=== PATIENT | female | born 1950 | race Caucasian/White ===

== ENCOUNTER 2016-12-17 10:57 | Inpatient (IN) | payer MEDICARE ==
[2016-12-17] VITALS (7 sets, daily range): BP systolic 139–194; BP diastolic 77–99; PULSE 80–116; RESP 16–18; O2SAT 96–100
[~2016-12-17] VITALS: Ht 160 cm; Wt 67.6 kg
[~2016-12-17 10:57] MED LIST: ALPR0.5T8 PO; ASPI-628 PO; ATEN50TA PO; FLUO10CA20 PO; HYDR25TA4 PO; LEVO112T4 PO; LISI40TA PO; LOVA40TA PO
[2016-12-17] MEDS ORDERED: 0.9% Sodium Chloride 1,000 ML IV ONE (11:06)
--- NOTE | 2016-12-17 11:06 | ED.REPORT ---
HPI-General Illness Date of Service Dec 17, 2016 ED Provider: Evert Hawkins MD Patient is a 66 year old female with a hx of HTN, hyperlipidemia, and breast cancer who presents to the ED via EMS s/p a syncopal episode. The patient was sitting on the living room floor with her daughter. When the daughter left and returned to the room, pt was on the floor and unconscious. It is estimated that she lost consciousness for 30 seconds to 1 minute. Daughter reports that the pt was complaining of lightheadedness before the incident. Per daughter, patient has been falling every day over the past 3 weeks. Patient states that she was feeling somewhat lightheaded beforehand but denies having any other symptoms at that time. She denies noting any notable alleviating or exacerbating factors that would have contributed to this. The falls have been increasing in frequency. She denies chest pain, SOB, dysuria, abdominal pain, nausea, vomiting, diarrhea, constipation, hematochezia, hematuria, numbness, focal weakness, fevers, chills, or any other symptoms. She was given a 500cc bolus en route. Patient did not take her HTN medications today. Nursing Notes Stated Complaint: SYNCOPE Chief Complaint: General Complaint Nursing Notes Reviewed: Yes Allergies: Coded Allergies: No Known Allergies (Unverified Allergy, Unknown, 12/17/16) Scheduled Aspirin Chew (Aspirin Chew) 81 Mg Chew 81 MG PO DAILY Gabapentin (Gabapentin) 100 Mg Capsule 200 MG PO HS Hydrochlorothiazide (Hydrochlorothiazide) 25 Mg Tablet 12.5 MG PO DAILY Levothyroxine (Levothyroxine) 112 Mcg Tablet 112 MCG PO DAILY Lisinopril (Lisinopril) 40 Mg Tablet 40 MG PO DAILY Lovastatin (Lovastatin) 40 Mg Tablet 40 MG PO HS General Time Seen by MD: 11:00 Chief Complaint Other (Syncope ) Hx Obtained From: Patient, Daughter Arrived By: Ambulance Sudden in Onset?: Yes Onset Occurred: Just prior to arrival Context of Onset: EtOH use Symptom Duration: More than a week... (3 weeks) Caused by: Accidental Context: Occurred at: Home injury Severity: Current: No pain currently Severity: Maximum: No pain Associated with: Reports: Loss of consciousness, Off balance (more falls ), Denies: Abdominal pain, Bleeding, Bruising, Chest pain, Diaphoresis, Difficulty breathing, Headache, Itching, Nasal discharge, Neck pain, Rash, Shortness of breath, Vision change, Vomiting, Weakness Additional Notes: lightheadedness Pertinent Negative: Pt denies other symptoms Exacerbated by: Drinking (alcohol) Pertinent Negative: Relieved by nothing Context Related History: Reports Cancer Recent Healthcare: No recent hospitalization Past Medical History Past Medical History Notes: Previously in a coma on life support for [address] [facility] Past Medical History High cholesterol Breast cancer Hypertension Depression necrotizing fasciitis with skin graft Thyroid disease Anxiety Past Surgical History Mastectomy "Ovary surgery" Reports: Tubal ligation Family History Daughter has hx of opiod addiction Smoking History Former Smoker Social History Alcohol Use: 1-3 per day Drug Use: Denies drug use Other Social History: Good social support Ambulatory Status Independent Review of Systems +frequent falls Full Review of Systems Constitutional: Denies: Chills, Fever Eyes: Denies: Blurred bilateral Ears / Nose / Throat: Denies: Sore throat Respiratory: Denies: Shortness of breath Cardiovascular: Denies: Chest pain GI: Denies: Abdominal pain, Constipation, Diarrhea, Hematochezia, Nausea, Vomiting Female: Denies: Dysuria, Hematuria Musculoskeletal: Denies: Neck pain Hematologic: Denies Bruising Endocrine: Denies: Polyuria Skin: Denies Rash Allergy / Immune: Denies: Itching Neurologic: Reports: Lightheaded, Syncope, Denies: Focal weakness, Numbness Psychiatric: Denies: Suicidal ideation Complete sys rev & neg: except as marked. Physical Exam Nursing note and vitals reviewed. Constitutional: Middle aged female that appears older than stated age. Tremulous. Head: Normocephalic and atraumatic. Mouth/Throat: Oropharynx is clear and moist. No oropharyngeal exudate. Eyes: EOM are normal. Pupils are equal, round, and reactive to light. Neck: Supple, no tracheal deviation. Cardiovascular: Tachycardia, regular rhythm. Equal and intact distal pulses throughout. Pulmonary/Chest: Effort normal and breath sounds normal. No respiratory distress. Abdominal: Soft. No distension. There is no tenderness, rebound, or guarding. Bowel sounds present. Musculoskeletal: Range of motion grossly intact, moving all extremities. No edema or tenderness appreciated. Neurological: AOx3. Grossly nonfocal exam. Strength and sensation intact and equal to bilateral upper and lower extremities. Tremulous. CIWA score 5. Skin: Warm and dry, no rashes or pallor appreciated. Psychiatric: Appropriate mood and affect. Behavior appears normal. Good insight. Vital Signs Vital Signs Date Time Temp Pulse Resp B/P Pulse Ox O2 Delivery O2 Flow Rate FiO2 12/17/16 14:19 105 17 160/77 98 Room Air 12/17/16 11:05 36.5 93 17 139/79 100 Room Air Initial VS: Reviewed Interpretation & Diagnostics Lab Results Interpretation Result Diagram: 12/17/16 1045 12/17/16 1045 Test 12/17/16 10:45 12/17/16 12:44 12/17/16 12:50 White Blood Count 6.4th/mm3 (3.8-10.1) Red Blood Count 3.76mil/mm3 (3.90-5.20) Hemoglobin 12.7g/dL (12.0-15.6) Hematocrit 35.7% (35.0-46.0) Mean Corpuscular Volume 94.9fL (81-100) Mean Corpuscular Hemoglobin 33.8pg (27.0-35.0) Mean Corpuscular Hemoglobin Concent 35.6% (32.0-37.0) Red Cell Distribution Width 13.1% (12.3-15.4) Platelet Count 275bil/L (150-400) Neutrophils (%) (Auto) 70.4% (40-74) Lymphocytes (%) (Auto) 14.0% (14-46) Monocytes (%) (Auto) 13.8% (4-12) Eosinophils (%) (Auto) 0.6% (0-5) Basophils (%) (Auto) 0.9% (0-3) Sodium Level 131mEq/L (134-144) Potassium Level 3.8mEq/L (3.5-5.2) Chloride Level 88mEq/L (97-108) Carbon Dioxide Level 16mmol/L (18-29) Blood Urea Nitrogen 8mg/dL (8-27) Creatinine 0.82mg/dL (0.57-1.00) Estimat Glomerular Filtration Rate 100mL/min (>59) Glucose Level 130mg/dL (60-99) Calcium Level 9.1mg/dL (8.5-10.1) Magnesium Level 1.3mg/dL (1.6-2.6) Total Bilirubin 0.7mg/dL (0.0-1.2) Aspartate Amino Transf (AST/SGOT) 130U/L (0-50) Alanine Aminotransferase (ALT/SGPT) 67U/L (0-32) Alkaline Phosphatase 71U/L (25-165) Total Protein 7.5g/dL (6.4-8.4) Albumin 4.2g/dL (3.4-5.0) Alcohols 144mg/dL (0-10) Hold Urine Received (Received) Troponin T < 0.010ug/L (0.0-0.011) Lipase 54U/L (13-60) ECG Interpretation ECG Interpretation: unable to interpret Time: 11:18 Interpreted by: ED physician X-Ray Chest Interpretation Chest Xray Interpretation: IMPRESSION: 1. No acute cardiac pulmonary findings. 2. Questionable pleural thickening at the left lung base. Minimally displaced rib fracture could also be considered in the appropriate differential. PA and lateral view or rib series may be helpful depending upon clinical history and physical exam to further characterize this finding. Dictated by: Laureen Pace M.D. on 12/17/2016 at 11:42 Approved by: Laureen Pace M.D. on 12/17/2016 at 11:44 View: Portable, 1 view Interpretation / Wet Read by: Interpret - Radiologist CT Head Interpretation IMPRESSION: 1. No acute intracranial process. 2. Moderate atrophy and chronic microvascular ischemic changes. Dictated by: Cinthya Jordan M.D. on 12/17/2016 at 12:37 Approved by: Cinthya Jordan M.D. on 12/17/2016 at 12:38 Study: Head CT no contrast Interpretation / Wet Read by: Interpret - Radiologist Re-Eval/Medical Decision Med Decision/Clinical Course In summary, 66-year-old female presenting to the ED for evaluation of increasing falls over the past several weeks, now fallen again this morning and being briefly unresponsive. Differential is broad and includes metabolic abnormality, intracranial mass/bleed, acute alcohol intoxication/ingestion, dysrhythmia, ACS, etc. Patient has no symptoms of note upon my evaluation, including no chest pain or palpitations. Shortly after our initial discussion, the patient admits to using more alcohol than she has previously admitted to and acknowledges that she is an alcoholic. She has not sought treatment for this in the past. Initially stated that she only had "a couple" of drinks last night and no alcohol today, however her initial blood alcohol is 144; if she has not had any alcohol today, then she likely had many more than 2 drinks last night. Chest x-ray with possible pleural thickening at the left lung base; she has no tenderness there on examination. CT scan of the patient's head negative for any acute intracranial abnormality. Laboratory studies here notable for mildly elevated LFTs, stable from previous. Bilirubin 0.7. Magnesium level I.3 (repleted here in the ED). Troponin negative. H&H grossly within normal limits. Given her heavy drinking, I am concerned that she will continue to have falls if she does not cease from drinking. However, here in the emergency department, she is becoming tremulous with a CIWA of 5 despite elevated blood alcohol and I am concerned for alcohol withdrawal. Plan admission for further management and evaluation of her recurrent falls and alcohol abuse, treatment for alcohol withdrawal. Patient agreeable to the plan as stated, no further questions. Time of Eval: 13:41 Re-Evaluation/Progress Note: Counseled pt on alcohol use and plan for admission. Patient understands and agrees with plan. All questions addressed at this time. Consultation : Referral / Consult Name: Everardo Gonzalez MD Consulted With: Hospitalist Call Returned at: 14:40 Customer Support Specialist: Will see patient, Agrees with eval, Agrees with plan, Accepts admit Note: Discussed pt's case. Accepts admit. Counseled Regarding: Diagnosis, Lab results, Need for admission Discharge & Departure Primary Impression: Alcohol abuse Additional Impressions: Frequent falls Episode of syncope Syncope type: unspecified Qualified Code: R55 - Syncope and collapse Alcohol withdrawal Complication of substance-induced condition: uncomplicated Qualified Code: F10.230 - Alcohol dependence with withdrawal, uncomplicated Disposition: ADMITTED TO HOSPITAL Discharge Condition All VS Reviewed: Yes Condition: Stable Referrals: Mann Mallory MD (PCP) Nat Attestation Portions of this note were transcribed by Janusz Cevallos. I, Dr. Hawkins personally performed the history, physical exam and medical decision-making; I reviewed and confirmed the accuracy of the information in the transcribed note. Signed: Nat Tafoya, 12/17/16 copies to: Mann Mallory MD, William B MD Dec 17, 2016 11:06 JANUSZ CEVALLOS Dec 17, 2016 13:18
[2016-12-17 11:14] LABS: BASOPHILS % (AUTO) 0.9 % (0-3); EOSINOPHILS % (AUTO) 0.6 % (0-5); MONOCYTES % (AUTO) 13.8 % (4-12); Mean Corpuscular Hemoglobin 33.8 pg (27.0-35.0); Mean Corpuscular Volume 94.9 fL (81-100); NEUTROPHILS % (AUTO) 70.4 % (40-74); Platelet Count 275 bil/L (150-400)
[2016-12-17 11:28] LABS: TROPONIN T 0.01 ug/L (0.0-0.011)
[2016-12-17 11:39] LABS: Magnesium 1.3 mg/dL (1.6-2.6)
--- NOTE | 2016-12-17 11:46 | DRSVH ---
PROCEDURE: X-RAY CHEST ONE VIEW, PORTABLE ([id number]) INDICATIONS: syncope TECHNIQUE: One view of the chest was acquired. COMPARISON: [facility], , CHEST 2 VIEW, 07/30/2016, 11:20. [facility], , CHEST 1VW (PORTABLE), 05/28/2014, 15:03. FINDINGS: Surgical changes and devices: Patient is status post left axillary sadie dissection. Lungs and pleura: No pleural effusions or pneumothorax. Lungs are clear. Mediastinum: Mediastinal contours appear normal. Heart size is normal. Bones and chest wall: There is questionable focal pleural thickening at the left lung base which is n ew when compared with the prior study dated 07/30/16. No suspicious bony lesions. Overlying soft tiss ues appear unremarkable. IMPRESSION: 1. No acute cardiac pulmonary findings. 2. Questionable pleural thickening at the left lung base. Minimally displaced rib fracture could also be considered in the appropriate differential. PA and lateral view or rib series may be helpful depe nding upon clinical history and physical exam to further characterize this finding. Dictated by: Laureen Pace M.D. on 12/17/2016 at 11:42 Approved by: Laureen Pace M.D. on 12/17/2016 at 11:44
--- NOTE | 2016-12-17 12:40 | DRSVH ---
PROCEDURE: CT BRAIN WITHOUT CONTRAST ([id number]) INDICATIONS: syncope, hx breast cancer TECHNIQUE: Noncontrast 4.5 mm thick angled axial sections acquired from the foramen magnum to the vertex, with c oronal reformats. COMPARISON: None. FINDINGS: Image quality: Excellent. CSF spaces: Basal cisterns are patent. No extra-axial fluid collections. The ventricles are symmet leopoldo in size and shape. Brain: No intracranial bleeds or masses. There is cerebral volume loss for age, with resultant vent ricular and sulcal prominence. There are periventricular and deep white matter chronic small vessel ischemic changes. There is intracranial internal carotid artery atherosclerosis. Old left subinsula r ischemia is noted. Skull and face: Calvarium and visualized facial bones appear intact, without suspicious lesions. Sinuses: Visualized sinuses demonstrate partially visualized fluid in the right maxillary sinus.. IMPRESSION: 1. No acute intracranial process. 2. Moderate atrophy and chronic microvascular ischemic changes. Dictated by: Cinthya Jordan M.D. on 12/17/2016 at 12:37 Approved by: Cinthya Jordan M.D. on 12/17/2016 at 12:38
[2016-12-17] MEDS ORDERED: Magnesium Sulf 2 Gm/50mL Water 2 GM in IV Premix 1 EACH IV ONE (13:40)
[2016-12-17] MEDS ORDERED: GABA-500 PO (14:11)
[2016-12-17] MEDS ORDERED: Ondansetron 2 mg/mL 2 mL Inj IVPUSH PRN (14:45)
[2016-12-17] MEDS ORDERED: Thiamine Inj 100 MG, Folic Acid Inj 1 MG, Magnesium Sulfate 50% Inj 2 GM, Multivitamins... IV ONE ×5 (14:45)
--- NOTE | 2016-12-17 15:19 | PCM.HPMED ---
Subjective Date of Service Dec 17, 2016 Primary Provider: Admitting Physician: Everardo Gonzalez MD Primary Care Physician: Mann Mallory MD Attending Physician: Everardo Gonzalez MD Chief Complaint: Patient 66-year-old female from home presents to the ED via EMS status post syncopal episode. History of Present Illness: Patient carries a medical history significant for hypertension, dyslipidemia, and hypothyroidism. Patient was found down by daughter for about 30 minutes. Upon awakening, patient had no memory of event. Prior to the event, patient remember felt weak to the knee, extremely lightheadedness transitioning from a seated position to standing out from her car. She denies any palpitation, chest pain, or shortness of breath prior to the event and patient denies any muscle aches pain , no swollen tongue, no bladder or bowel incontinence post fall. Patient had one similar episode yesterday as well. No reported trauma from the syncopal episodes. Pt had frequent falls for the past 3-4 months. Patient denies any decrease in appetite or by mouth intake. Patient admits to ingesting at least 3 -4 shots of vodka qd the past 2 years. Patient endorses using alcohol to treat her anxiety/PTSD. Pt started drinking EtOH about 10 years ago after her abandoned her. When Medics arrived, positive for orthostatics, thus gave 500 mL NS enroute. The ED, vitals were unremarkable. Labs however showed patient intoxicated with an alcoholic level of 144, sodium 131, potassium 3.8, chloride 88, bicarbonate 16, BUN 8, creatinine 0.82, with a glucose 130. Additionally patient had magnesium 1.3 with AST 1:30, ALT 67, total bili and alkaline phosphatase within normal limits. Patient was thus admitted for syncope and alcohol intoxication Review of Systems: A comprehensive review of systems was conducted with the patient and found to be negative except as above in the History of Present Illness. Allergies Coded Allergies: No Known Allergies (Unverified Allergy, Unknown, 12/17/16) Home Medications Aspirin 81 mg daily Augmentin 200 mg daily Hydrochlorothiazide 12 mg daily Levothyroxine 1126 MCG daily Lisinopril 40 mg daily Lovastatin 40 mg nightly PMH High cholesterol Breast cancer Hypertension Depression necrotizing fasciitis with skin graft in May 2014 Thyroid disease Anxiety Surgical History Skin grafting to left forearm Family History Mother of aspiration pneumonia Father of [place] Social History Hx Alcohol Use: Yes (daily) Alcoholic Drinks Per Day: vodka,seltzer water 3-4 daily Smoking Status: Former Smoker Living Arrangement: with Family (lives on the same property as daughter) Exam Vital Signs Vital Sign - Last Date Time Temp Pulse Resp B/P Pulse Ox O2 Delivery O2 Flow Rate FiO2 12/17/16 14:19 105 17 160/77 98 Room Air 12/17/16 11:05 36.5 Exam General: No acute distress, appropriately interactive HEENT: Normocephalic, atraumatic. PERRLA, EOMI, Anicteric sclerae, moist conjunctivae. Neck: No JVD, No bruits. No lymphadenopathy or thyromegaly. Cardiovascular: Regular rate and rhythm with no murmurs, rubs, or gallops appreciated Pulmonary: b/l air sound with no crackles, wheezes, or rhonchi. no use of accessory muscles. Abdomen: +Bowel sound, Soft, nontender, nondistended. Extremities: No clubbing or cyanosis, no lymphedema, no b/l lower leg edema Skin: Normal temperature, turgor, and texture; no rash. No visualized skin ulcer. Neurological: CN II-VII grossly intact, moving equally on all 4 extremities, visible and tremors, negative heel heel to castanon test, positive finger to nose test Psychiatric: Normal mood and affect. AOx3 Lab and Diagnostics Result Diagram: 12/17/16 1045 12/17/16 1045 X-Rays, CTs and MRIs PROCEDURE: CT BRAIN WITHOUT CONTRAST ([id number]) IMPRESSION: 1. No acute intracranial process. 2. Moderate atrophy and chronic microvascular ischemic changes. Dictated by: Cinthya Jodran M.D. on 12/17/2016 at 12:37 Assessment & Plan Patient has a medical history significant for hypertension, dyslipidemia, hypothyroidism, alcoholic use disorder, and depression anxiety/PTSD presented with syncopal episode, admitted for further workup and also EtOH intoxication. Syncope -CT head unremarkable for any acute findings -Possible dehydration, cardiogenic, or autonomic dysfunction -Echocardiogram, telemetry monitoring ordered -ordered TSH, vitamin B12, folate ordered EtOH intoxication -alcohol 144 -supplements vitamins. -[facility] protocol in placed Transaminitis -ETOH related, possible viral -hepatitis panel and HIV testing ordered, ammonia for baseline Hyponatremia -urine sodium and Osm ordered -possibly ETOH related Frequent fall -2nd to syncope and unsteady gait -PT ordered Hypertension -cont home lisinopril and HCTz Dyslipidemia -cont home atorvastatin Hypothyroidism -Cont home levothyroxine -TSH/T4 ordered CODE STATUS full code DVT prophylaxis heparin Patient Status: Patient is admitted under observation status with expected length of stay LESS than 2 midnights due to severity of presenting symptoms, risk of adverse event, and complexity of treatment plan. GI Prophylaxis: Not indicated VTE Prophylaxis: Sub-Q Heparin (Unfractionated) Resuscitation Status: CPR: Attempt Resuscitation Galindo Vanessa DO Dec 17, 2016 15:18
[2016-12-17] MEDS ORDERED: ASPI81TA3 PO (16:00)
[2016-12-17] MEDS: Lisinopril 40 Tablet PO SCH (16:35)
--- NOTE | 2016-12-17 16:45 | DRSVH ---
[facility] [address] [place] [address] Echocardiogram Report Name: ANDREE HORTON Date: 12/17/2016 Height: 63 in Hospital Exam Location: [facility] Weight: 14 0 lb Gender: Female BSA: 1.7 m2 : 1950 Age: 66 yrs BP: 160/77 mmHg Reason For Study: SYNCOPE Ordering Physician: HOSPITALIST [facility] Performed By: Karen Lindsey Referring Physician: Sixto Fox Interpretation Summary The left ventricular cavity is small. There is mild asymmetric left ventricular hypertrophy. The left ventricular ejection fraction is normal. The ejection fraction is estimated to be 55-60%. Compared to the prior exam, left ventricular function is significantly improved. There are no obvious focal wall motion abnormalities noted but poor endocardial definition reduces the sensitivity for the detection of such. The right ventricle is normal size. The right ventricle appears to be hypertrophied. The right ventricular systolic function is normal which has improved since prior study. Pulmonary artery pressures cannot be estimated because of the lack of a measurable TR jet velocity. The left atrium is small. Right atrium is small. The aortic arch is mildly enlarged. There is an anterior echo-free space consistent with a fat pad. There appears to be no significant pericardial effusion. Procedure: A two-dimensional transthoracic echocardiogram with color flow and Doppler was performed. The study quality was technically difficult. Comparison is made with the echocardiogram of 05/28/14. The patient was in sinus tachycardia with heart rates between 90 and 109 bpm during the exam. Left Ventricle: The left ventricular cavity is small. There is mild asymmetric left ventricular hypertrophy. The left ventricular ejection fraction is normal. The ejection fraction is estimated to be 55-60%. Compared to the prior exam, left ventricular function is significantly improved. There are no obvious focal wall motion abnormalities noted but poor endocardial definition reduces the sensitivity for the detection of such. Diastolic function could not be accurately assessed due to tachycardia. Right Ventricle: The right ventricle is normal size. The right ventricle appears to be hypertrophied. The right ventricular systolic function is normal. Atria: The left atrium is small. Right atrium is small. There is no Doppler evidence for an interatrial shunt. Mitral Valve: The mitral valve leaflets appear thickened, but open well. There is no mitral regurgitation noted. Aortic Valve: The aortic valve is not well visualized. The aortic valve opens well. No aortic regurgitation is present. Tricuspid Valve: The tricuspid valve is normal. There is a trace or physiologic amount of tricuspid regurgitation. Pulmonary artery pressures cannot be estimated because of the lack of a measurable TR jet velocity. Pulmonic Valve: The pulmonic valve is not well visualized. There is a trace or physiologic amount of pulmonic regurgitation. Great Vessels: The aortic root is normal size. The ascending aorta is normal in size. The aortic arch is mildly enlarged. The pulmonary is not well visualized. The IVC is of normal diameter and collapses greater than 50% with a sniff. This suggests a low right atrial pressure of 3 mm Hg. Pericardium/ Pleura There is an anterior echo-free space consistent with a fat pad. There is a trivial pericardial effusion noted. There is no pleural effusion. MMode/2D Measurements & Calculations LVIDd: 3.7 cm RA long axis LVOT diam: 1.9 cm LVIDs: 2.3 cm LA A2 area: 11.8 cm AoV Opening FS: 38.1 % LA A4 area: 10.8 cm RA area EPSS: 0.42 cm LA length (vol) Ao root diam IVSd: 1.3 cm : 8.3 cm LVPWd: 0.97 cm LA vol: 25.1 ml RA vol asc Aorta Diam LA vol index : 15.9 ml RA Ao Arch Diam (Prox : 9.6 mm2 Trans): 3.5 cm IVC diam: 1.1 cm LV cevallos. diameter/BSA LV sys. diameter/BSA RVD1 (basal) RVD2 (mid): 2.4 cm (cm/m^2): 2.2 (cm/m^2): 1.4 Doppler Measurements & Calculations Ao V2 max MV E max richie MV E/A: 0.63 PA V2 max : 138.0 cm/sec : 102.7 cm/sec Med Peak E' Richie : 80.8 cm/sec Ao max PG MV A max richie PA mean PG : 7.6 mmHg : 162.7 cm/sec E/E' med: 15.4 Ao mean PG MV P1/2t: 43.2 msec Lat Peak E' Richie PA Accel Time : 0.11 sec LVOT Max Richie E/E' lat: 17.2 : 131.5 cm/sec E/e' average: 16.3 ZAINAB(I,D): 2.7 cm sev ratio MV dec time MV P1/2t max richie Ao V2 mean LV V1 max PG : 0.15 sec : 111.6 cm/sec MVA(P1/2t): 5.1 cm2 Ao V2 VTI: 27.8 cm LV V1 VTI ZAINAB(V,D): 2.7 cm2 : 26.5 cm PA V2 mean ZAINAB indexed to BSA : 60.8 cm/sec (cm^2/m^2): 1.6 Reading Physician:JANESSA
--- NOTE | 2016-12-17 17:50 | NUR ---
ADMIT Patient arrived from ER at 1545, immediately had ECHO (55-60). Hx of falls, ETOH, telemetry Sinus tach 110-120. BP 170/90, CIWA score 14, 2mg IVP Ativan given with good results. Banana bag started @200mls/hr due to IV site right hand. Patient oriented to room and hospital policies, has ordered dinner. MD in to access and has ordered home medication and new labs.
[2016-12-18] VITALS (7 sets, daily range): BP systolic 135–170; BP diastolic 85–105; PULSE 92–110; RESP 18–22; O2SAT 97–99
[2016-12-18] MEDS: Heparin 5,000 Unit/mL Inj SUBQ SCH ×3 (00:11→17:46)
--- NOTE | 2016-12-18 02:18 | NUR ---
neuro: pt. tried to get up to go to bathroom, pt's legs weak, unable to walk and used bedside commode w/ one person assist. Pt. forgetful and disoriented at times, pt's last CIWA score was 6,
[2016-12-18 07:36] LABS: Magnesium 1.9 mg/dL (1.6-2.6)
[2016-12-18] MEDS: Multivit-Miner-Folic Acid-Iron Tablet PO SCH (09:27)
[2016-12-18] MEDS: Lisinopril 40 Tablet PO SCH (09:27)
[2016-12-18 10:08] LABS: Hepatitis A Antibody IgM Negative (Negative); Hepatitis B Core Antibody IgM Negative (Negative)
--- NOTE | 2016-12-18 11:31 | PCM.PNMED ---
Subjective Date of Service Dec 18, 2016 Subjective pt denied BOWEN, dizziness, n, v, eating well, but feels very weak, cannot get out of bed w/o assistance, AAOX3, minimal CIWA today but still requiring ativan Blood pressure is stable and patient is less tachycardic Exam Vital Signs Vital Sign - Last Date Time Temp Pulse Resp B/P Pulse Ox O2 Delivery O2 Flow Rate FiO2 12/18/16 10:43 99 12/18/16 09:50 36.8 22 170/100 99 Room Air Intake and Output 12/17/16 12/17/16 12/18/16 Cumulative From/Thru 15:00 23:00 07:00 12/17/16 11:03 - 12/18/16 06:23 Intake Total 1000 ml 250 ml 1250 ml Output Total 500 ml 500 ml Balance 1000 ml -250 ml 750 ml Intake Oral 250 ml 250 ml IV Total 1000 ml 1000 ml Output Urine Total 500 ml 500 ml Exam NAD, comfortably laying down on the bed Very fine tremors on extended arms bilaterally. no tongue fasciculation no JVD, MMM, no LAD RRR, nl s1, s2 no mrg CTAB, no w,c S,ND,NT,normoactive BS+ warm, no edema, pulses 2/2 IVs and Medications Medications Reviewed: Medications were reviewed in detail Lab and Diagnostics Result Diagram: 12/17/16 1045 12/18/16 0645 X-Rays, CTs and MRIs PROCEDURE: CT BRAIN WITHOUT CONTRAST ([id number]) IMPRESSION: 1. No acute intracranial process. 2. Moderate atrophy and chronic microvascular ischemic changes. Dictated by: Cinthya Jordan M.D. on 12/17/2016 at 12:37 Assessment & Plan Patient has a medical history significant for hypertension, dyslipidemia, hypothyroidism, alcoholic use disorder, and depression anxiety/PTSD presented with syncopal episode, admitted for further workup and also EtOH intoxication. acute,active Syncope, with multiple falls, generalized weakness, POA, likely dehydration in the setting of etoh intoxication. CTH neg.Echocardiogram unremarkable, TSH WNL. -continue telemetry -s/p banana bag, encourage oral hydration, -PT today. EtOH intoxication, WD, POA, alcohol level 144, no hallucination, controlled with short acting benzo -continue CIWA protocol -supplements vitamins. Transaminitis, POA, likely mild alcoholic hepatitis, viral hep panel neg, trend for now Hyponatremia, hypovolemic, level stable 133 today no neurologic deficit. chronic, stable, Hypertension, cont home lisinopril and HCTz Dyslipidemia, cont home atorvastatin Hypothyroidism, Cont home levothyroxine, TSH lower normal CODE STATUS full code DVT prophylaxis heparin dispo: likely 1-2days, appreciate PT to optimize dispo, likely home with HH GI Prophylaxis: Not indicated VTE Prophylaxis: Sub-Q Heparin (Unfractionated) VTE Mechanical Devices: Intermittant Pneumatic CD Resuscitation Status: CPR: Attempt Resuscitation Time spent 35 minutes Everardo Gonzalez MD Dec 18, 2016 11:31
--- NOTE | 2016-12-18 14:59 | NUR ---
Case Management: [facility] delivered and charted. Signed original laced in chart. Copy left at bedside. Seema Pittman RN
--- NOTE | 2016-12-18 17:33 | NUR ---
Social Work-attempted assessment: Data: EMR Reviewed. Pt is a 66 y/o male who was admitted on 12/17/16 for altered mental status per H&P. Pt's insurance is [facility] and [employer] and PCP is Mann Mallory MD. EMR reviewed. SW attempted to see pt today, but RN in room. order has been received for CD assessment. Pt has history of ETOH use, currently on CIWA. SW to follow up with pt tomorrow and complete assessment. Assessment:Pt who is independent at baseline. Plan:Pt to discharge home when medically stable. SW to follow up with assessment tomorrow. SW will continue to follow. DARIUS Lira
--- NOTE | 2016-12-18 19:36 | NUR ---
KEEGAN Pt denies pain. CIWA 4 all shift, does report seeing a person over her right shoulder but she doesn't hear or see anything. Mild tremor. Pt reported 4 shots vodka per day, per discussion with daughter, she states pt drinks about 1/2 bottle vodka per day. hourly rounding provided, call light within reach.
[2016-12-19] VITALS (13 sets, daily range): BP systolic 143–181; BP diastolic 93–110; PULSE 71–100; RESP 16–18; O2SAT 96–98
[2016-12-19] MEDS: Heparin 5,000 Unit/mL Inj SUBQ SCH ×3 (00:50→17:23)
[2016-12-19 03:09] LABS: Vitamin B12 690 pg/mL (211-946)
[2016-12-19 05:47] LABS: Mean Corpuscular Hemoglobin 33.8 pg (27.0-35.0); Mean Corpuscular Volume 96.6 fL (81-100)
--- NOTE | 2016-12-19 06:12 | NUR ---
[facility] CIWA score throughout shift was 6. Pt denies pain, mild tremors noted and pt somewhat unsteady on feet and forgetful. Addendum: 12/19/16 at 0620 by ALFA MELÉNDEZ RN HR HR increases to 130's with activity but stays in the 70's at rest.
[2016-12-19] MEDS: Multivit-Miner-Folic Acid-Iron Tablet PO SCH (09:39)
--- NOTE | 2016-12-19 13:28 | PCM.PNMED ---
Subjective Date of Service Dec 19, 2016 Subjective No lightheadedness on standing. No Orthostatic blood pressure drop. She has some tremulousness . Exam Vital Signs Vital Sign - Last Date Time Temp Pulse Resp B/P Pulse Ox O2 Delivery O2 Flow Rate FiO2 12/19/16 12:14 Room Air 12/19/16 10:13 80 152/100 12/19/16 08:59 36.4 18 98 Intake and Output 12/18/16 12/18/16 12/19/16 Cumulative From/Thru 15:00 23:00 07:00 12/17/16 11:03 - 12/19/16 07:00 Intake Total 725 ml 300 ml 2275 ml Output Total 675 ml 425 ml 1600 ml Balance 50 ml -125 ml 675 ml Intake Oral 725 ml 300 ml 1275 ml IV Total 1000 ml Output Urine Total 675 ml 425 ml 1600 ml # Voids 3 3 # Bowel Movements 1 1 Exam NAD, comfortably laying down on the bed Very fine tremors on extended arms bilaterally. no tongue fasciculation no JVD, MMM, no LAD RRR, nl s1, s2 no mrg CTAB, no w,c S,ND,NT,normoactive BS+ warm, no edema, pulses 2/2 IVs and Medications Medications Reviewed: Medications were reviewed in detail Lab and Diagnostics Result Diagram: 12/19/16 0515 12/18/16 0645 X-Rays, CTs and MRIs PROCEDURE: CT BRAIN WITHOUT CONTRAST ([id number]) IMPRESSION: 1. No acute intracranial process. 2. Moderate atrophy and chronic microvascular ischemic changes. Dictated by: Cinthya Jordan M.D. on 12/17/2016 at 12:37 Cardiac Echo Impressions 12/17/16 Interpretation Summary The left ventricular cavity is small. There is mild asymmetric left ventricular hypertrophy. The left ventricular ejection fraction is normal. The ejection fraction is estimated to be 55-60%. Compared to the prior exam, left ventricular function is significantly improved. There are no obvious focal wall motion abnormalities noted but poor endocardial definition reduces the sensitivity for the detection of such. The right ventricle is normal size. The right ventricle appears to be hypertrophied. The right ventricular systolic function is normal which has improved since prior study. Pulmonary artery pressures cannot be estimated because of the lack of a measurable TR jet velocity. The left atrium is small. Right atrium is small. The aortic arch is mildly enlarged. There is an anterior echo-free space consistent with a fat pad. There appears to be no significant pericardial effusion Assessment & Plan Patient has a medical history significant for hypertension, dyslipidemia, hypothyroidism, alcoholic use disorder, and depression anxiety/PTSD presented with syncopal episode, admitted for further workup and also EtOH intoxication. acute,active # Syncope, with multiple falls, generalized weakness, POA, likely dehydration in the setting of etoh intoxication. CTH neg.Echocardiogram unremarkable, TSH WNL. -continue telemetry -s/p banana bag, encourage oral hydration, -PT rec outpt PT . Orthostatic negative now #EtOH intoxication, WD, POA, alcohol level 144, no hallucination, controlled with short acting benzo -continue CIWA protocol -supplements vitamins. #Transaminitis, POA, likely mild alcoholic hepatitis, viral hep panel neg, trend for now #Hyponatremia, hypovolemic, level stable 133 today no neurologic deficit. chronic, stable, #Hypertension, cont home lisinopril and HCTz #Dyslipidemia, cont home atorvastatin #Hypothyroidism, Cont home levothyroxine, TSH lower normal CODE STATUS full code DVT prophylaxis heparin dispo: likely tomorrow with outpatient therapy GI Prophylaxis: Not indicated VTE Prophylaxis: Sub-Q Heparin (Unfractionated) VTE Mechanical Devices: Intermittant Pneumatic CD Resuscitation Status: CPR: Attempt Resuscitation Pedrito Chavez MD Dec 19, 2016 13:28
--- NOTE | 2016-12-19 15:17 | NUR ---
Social Work-initial assessment: Data:See initial assessment. Pt is 66 y/o female who was admitted on 12/17/16 for alcohol w/d per H&P. Pt's insurance is [employer] and PCP is Mann Mallory MD. EMR Reviewed. Pt's readmission score is 4-high risk. JUSTINO met with pt at bedside, SW role explained. Pt is alert and oriented x3. Pt reside at home with her grandchildren and daughter who is moving in next week. Pt does not use any DME, but has a fww at home if needed and does drive. Pt's daughter has ordered her a stair climber for in the house. Pt has no HH or SNF history. Pt has no long term care social worker care insurance or VA benefits. SW discussed DPOA/ advanced directive, pt confirms she has completed this, SW encouraged a copy to be brought in. SW completed CD assessment with pt( see alternative note). No concerns regarding pt's capacity for self care from RN or MD. PT has cleared pt for home with outpt PT services. Pt states her daughter will provide transport home. SW provided pt with discharge planning checklist and encouraged her to call [facility] any questions, phone number provided on white board in room. No anticipated discharge needs. SW will continue to follow if needs arise. Assessment:Pt who is independent at baseline. Plan:Pt to discharge home when medically stable via pOV. Pt declining CD resources at this time. No anticipated discharge needs. SW will continue to follow if needs arise. DARIUS Lira Addendum: 12/19/16 at 1524 by SARBJIT SANDERS Amended: Links added.
--- NOTE | 2016-12-19 15:25 | NUR ---
Social Work-Chemical dependence assessment: Current Circumstances/Reason for Referral: Pt is a 66 y/o female who was admitted for alcohol w/d per H&P. order received for substance abuse. SW met with pt at bedside to complete assessment, pt alert and oriented x3. History of Substance Use: Pt has been drinking for the last 10 years, about four large drinks a day. Pt states that she originally started drinking to help with anxiety and then it just went from there. Pt denies any other drug use. History of Treatment Programs: Pt has never been to treatment History of Sobriety and Supports: Pt states her grandchildren and daughter are good support to her. They are going to be living with her and she is happy to have them there. Pt states she has had periods of sobriety, but they did not last very long. Pt also has a friend who has been sober for 40 years to talk with. Patients Perception of use:Pt realizes that she has a problem and plans to not drink again once she is home. Pt states she does not have any alcohol in her house. SW asked pt about outpt CD resources and pt declines. Pt [place] and does not want to involve her self in this. Recommendations for referral and follow up: Pt plans to discharge home when medically stable. Pt declining CD resources at this time. No other SW needs. JUSTINO will continue to follow. DARIUS Lira
--- NOTE | 2016-12-19 18:49 | NUR ---
CIWA Scale: Patients CIWA this morning was 7 . She was given 2 mg of Lorazepam with good results. Patients CIWA scale this evening is 4 . She is calm and cooperative with care and using her call light to ask for assistance. The tremors in her hands have improved and are very mild compared with earlier today.
[2016-12-19] MEDS ORDERED: cloNIDine 0.1 mg Tablet PO ONE (20:30)
[2016-12-20] MEDS: Heparin 5,000 Unit/mL Inj SUBQ SCH ×2 (01:07→09:10)
[2016-12-20 01:15] VITALS: BP 125/87; PULSE 77; RESP 16; O2SAT 96
--- NOTE | 2016-12-20 02:52 | NUR ---
Hypertension/CIWA/IV After ambulation from BR the pt had an increased BP 179/111, 174/100; Tele SR 85 and pt asymptomatic. Pt denies chest pain and pressure. MD notified and Clonidine 0.3mg given once which reduced BP 143/93 hr 81; most recent BP 125/87 hr 77. Pt has no s/sx of distress and appears to be resting comfortably. Denies pain and anxiety. CIWA=0 x 2. IV 20 gauge placed in RT hand-asymptomatic. Care continues.
[2016-12-20 04:55] VITALS: BP 124/82; PULSE 70; RESP 16; O2SAT 96
[2016-12-20 06:07] VITALS: PULSE 71
[2016-12-20 08:00] VITALS: PULSE 71
[2016-12-20 09:02] VITALS: BP 151/90; PULSE 67; RESP 16; O2SAT 98
[2016-12-20] MEDS: Multivit-Miner-Folic Acid-Iron Tablet PO SCH (09:09)
--- NOTE | 2016-12-20 10:11 | PCM.DIMED ---
Discharge Instructions Date of Service Dec 20, 2016 Dates of Hospitalization Dec 17, 2016 at 15:09 Discharge Diagnosis Discharge Diagnosis # Syncope, with multiple falls, generalized weakness, POA, likely dehydration in the setting of etoh intoxication. #EtOH intoxication, POA, alcohol level 144, #Transaminitis, POA, likely mild alcoholic hepatitis, #Hyponatremia, hypovolemic, level stable 133 today no neurologic deficit. chronic, stable, #Hypertension, #Dyslipidemia, #Hypothyroidism, Diet Discharge Diet: Low fat, Low Sodium Activity Discharge Activity: Outpatient Physical Therapy Call your provider Call your provider for: Fever or Chills, Shortness of breath, Bleeding, Chest pain, Vomitting, Excessive diarrhea, Weakness (unilateral) Patient Instructions Patient Instructions You were hospitalized due to syncope. Seems to be due to alcohol intoxication. Please follow-up with AA and other out patient resources for help in chemical dependency. Please continue outpatient physical therapy. Please follow-up with PCP on December 24 as scheduled. Continue all other medications as usual. Follow-up Provider: Mann Mallory MD Follow-up with PCP in: 1 week (Dec 24) Pedrito Chavez MD Dec 20, 2016 10:11
[2016-12-20] MEDS ORDERED: WALK1EAC55 MC (10:13)
--- NOTE | 2016-12-20 11:03 | NUR ---
Social Work: Discharge Data: EMR reviewed. Patient is on day 3 of hospitalization for ETOH w/d, falls, & syncope per H&P. Patient was discussed in rounds and has been deemed medically stable for discharge. Prior to admission, patient lived at home alone. PT has completed evaluation of patient and recommendation has been made for patient to receive outpatient PT at discharge. Patient currently has a FWW at home and PT has recommended that she use it. Transportation arrangements will be made by patient. Patient has no additional needs at this time. Assessment: Patient will discharge home. Plan: Patient will discharge home today. Patient has been deemed medically stable by MD. PT has recommended outpatient PT f/u. Patient has a FWW that she currently owns therefore, no DME will need to be order. Patient will arrange her own transportation. Patient has no additional needs at this time. DARIUS Pierre
--- NOTE | 2016-12-20 12:47 | NUR ---
Discharge Nursing note: Patient was discharged to home at 1230. Her IV was removed intact. All of patients discharge information was reviewed with her and her questions were answered to her satisfaction. Patient was brought to the hospital lobby in a wheel chair by nursing staff member and she was driven to home by her daughter.
--- NOTE | 2016-12-20 16:03 | PCM.DC.MED ---
Discharge Summary Date of Service Dec 20, 2016 Dates of Hospitalization Date of Hospital Admission Dec 17, 2016 at 15:09 Date of Discharge: Dec 20, 2016 Providers: Admitting Physician: Everardo Gonzalez MD Primary Care Physician: Mann Mallory MD Attending Physician: Pedrito Sheppard MD Diagnosis at Time of Discharge Diagnosis at Time of Discharge # Syncope, with multiple falls, generalized weakness, POA, likely dehydration in the setting of etoh intoxication. #EtOH intoxication, POA, alcohol level 144, #Transaminitis, POA, likely mild alcoholic hepatitis, #Hyponatremia, hypovolemic, level stable 133 today no neurologic deficit. chronic, stable, #Hypertension, #Dyslipidemia, #Hypothyroidism, Procedures XRay, CTs & MRIs PROCEDURE: CT BRAIN WITHOUT CONTRAST ([id number]) IMPRESSION: 1. No acute intracranial process. 2. Moderate atrophy and chronic microvascular ischemic changes. Dictated by: Cinthya Jordan M.D. on 12/17/2016 at 12:37 Cardiac Echo Impression 12/17/16 Interpretation Summary The left ventricular cavity is small. There is mild asymmetric left ventricular hypertrophy. The left ventricular ejection fraction is normal. The ejection fraction is estimated to be 55-60%. Compared to the prior exam, left ventricular function is significantly improved. There are no obvious focal wall motion abnormalities noted but poor endocardial definition reduces the sensitivity for the detection of such. The right ventricle is normal size. The right ventricle appears to be hypertrophied. The right ventricular systolic function is normal which has improved since prior study. Pulmonary artery pressures cannot be estimated because of the lack of a measurable TR jet velocity. The left atrium is small. Right atrium is small. The aortic arch is mildly enlarged. There is an anterior echo-free space consistent with a fat pad. There appears to be no significant pericardial effusion Brief History per HPI Patient carries a medical history significant for hypertension, dyslipidemia, and hypothyroidism. Patient was found down by daughter for about 30 minutes. Upon awakening, patient had no memory of event. Prior to the event, patient remember felt weak to the knee, extremely lightheadedness transitioning from a seated position to standing out from her car. She denies any palpitation, chest pain, or shortness of breath prior to the event and patient denies any muscle aches pain , no swollen tongue, no bladder or bowel incontinence post fall. Patient had one similar episode yesterday as well. No reported trauma from the syncopal episodes. Pt had frequent falls for the past 3-4 months. Patient denies any decrease in appetite or by mouth intake. Patient admits to ingesting at least 3 -4 shots of vodka qd the past 2 years. Patient endorses using alcohol to treat her anxiety/PTSD. Pt started drinking EtOH about 10 years ago after her abandoned her. When Medics arrived, positive for orthostatics, thus gave 500 mL NS enroute. The ED, vitals were unremarkable. Labs however showed patient intoxicated with an alcoholic level of 144, sodium 131, potassium 3.8, chloride 88, bicarbonate 16, BUN 8, creatinine 0.82, with a glucose 130. Additionally patient had magnesium 1.3 with AST 1:30, ALT 67, total bili and alkaline phosphatase within normal limits. Patient was thus admitted for syncope and alcohol intoxication Hospital Course Patient has a medical history significant for hypertension, dyslipidemia, hypothyroidism, alcoholic use disorder, and depression anxiety/PTSD presented with syncopal episode, admitted for further workup and also EtOH intoxication. acute,active # Syncope, with multiple falls, generalized weakness, POA, likely dehydration in the setting of etoh intoxication. CTH neg.Echocardiogram unremarkable, TSH WNL. - telemetry unrevealing -Received banana bag, thiamine -PT rec outpt PT . Continue outpatient physical therapy. Orthostatic negative now #EtOH intoxication, some withdrawal symptoms on day 2-3, POA, alcohol level 144 , no hallucination, controlled with short acting benzo -Treated with CIWA protocol -Treated with supplements vitamins. -Declined CD assessment by family welfare social work professor. Daughter at bedside states they know friends who will provide outpatient resources information. Daughter planning to move in next door to follow-up with her mom closely #Transaminitis, POA, improved likely mild alcoholic hepatitis, viral hep panel neg, trended down for now #Hyponatremia, improved hypovolemic, level stable 133 today no neurologic deficit. chronic, stable, #Hypertension, cont home lisinopril and HCTz #Dyslipidemia, cont home atorvastatin #Hypothyroidism, Cont home levothyroxine, TSH lower normal Discharge at home Condition on discharge stable Exam Vital Signs (Last) Date Time Temp Pulse Resp B/P Pulse Ox O2 Delivery O2 Flow Rate FiO2 12/20/16 09:02 36.6 67 16 151/90 98 Room Air Exam NAD, comfortably laying down on the bed Very fine tremors on extended arms bilaterally. no tongue fasciculation no JVD, MMM, no LAD RRR, nl s1, s2 no mrg CTAB, no w,c S,ND,NT,normoactive BS+ warm, no edema, pulses 2/2 Test 12/17/16 10:45 12/17/16 12:44 12/17/16 12:50 12/17/16 19:00 Neutrophils (%) (Auto) 70.4% (40-74) Lymphocytes (%) (Auto) 14.0% (14-46) Monocytes (%) (Auto) 13.8% (4-12) Eosinophils (%) (Auto) 0.6% (0-5) Basophils (%) (Auto) 0.9% (0-3) Alcohols 144mg/dL (0-10) Urine Random Sodium 103mEq/L Hold Urine Received (Received) Osmolality 301 (275-300) Troponin T < 0.010ug/L (0.0-0.011) Lipase 54U/L (13-60) Thyroid Stimulating Hormone (TSH) 0.550uIU/mL (0.450-4.500) Free Thyroxine 1.67ng/dL (0.82-1.77) Ammonia 38ug/dL (18-53) Vitamin B12 Level 690pg/mL (211-946) Folate ng/mL (.) Hepatitis A IgM Antibody Negative (Negative) Hepatitis B Surface Antigen Negative (Negative) Hepatitis B Core IgM Antibody Negative (Negative) Hepatitis C Antibody <0.1s/co ratio (0.0-0.9) Hepatitis C Comment Comment (.) HIV (1&2) Ag and Ab, 4th Generation Non reactive (Non Reactive) Test 12/18/16 06:45 12/19/16 05:15 Sodium Level 133mEq/L (134-144) Potassium Level 3.8mEq/L (3.5-5.2) Chloride Level 95mEq/L (97-108) Carbon Dioxide Level 22mmol/L (18-29) Blood Urea Nitrogen 8mg/dL (8-27) Creatinine 0.50mg/dL (0.57-1.00) Estimat Glomerular Filtration Rate 177mL/min (>59) Glucose Level 102mg/dL (60-99) Calcium Level 8.0mg/dL (8.5-10.1) Magnesium Level 1.9mg/dL (1.6-2.6) Total Bilirubin 0.9mg/dL (0.0-1.2) Aspartate Amino Transf (AST/SGOT) 64U/L (0-50) Alanine Aminotransferase (ALT/SGPT) 40U/L (0-32) Alkaline Phosphatase 57U/L (25-165) Total Protein 5.8g/dL (6.4-8.4) Albumin 3.5g/dL (3.4-5.0) Triglycerides Level 80mg/dL (0-149) Cholesterol Level 145mg/dL (100-199) LDL Cholesterol, Calculated 31.000mg/dL (0-99) VLDL Cholesterol 16.000mg/dL HDL Cholesterol 98mg/dL (>39) Cholesterol/HDL Ratio 1.48 (0.0-4.4) White Blood Count 3.1th/mm3 (3.8-10.1) Red Blood Count 2.90mil/mm3 (3.90-5.20) Hemoglobin 9.8g/dL (12.0-15.6) Hematocrit 28.0% (35.0-46.0) Mean Corpuscular Volume 96.6fL (81-100) Mean Corpuscular Hemoglobin 33.8pg (27.0-35.0) Mean Corpuscular Hemoglobin Concent 35.0% (32.0-37.0) Red Cell Distribution Width 12.6% (12.3-15.4) Platelet Count 167bil/L (150-400) Discharge Medications Discharge Medications Aspirin Chew (Aspirin Chew) 81 Mg Chew 81 MG PO DAILY (Reported) Gabapentin (Gabapentin) 100 Mg Capsule 200 MG PO HS (Reported) Hydrochlorothiazide (Hydrochlorothiazide) 25 Mg Tablet 12.5 MG PO DAILY Prescribed by: TROY AVENDANO DO Levothyroxine (Levothyroxine) 112 Mcg Tablet 112 MCG PO DAILY Prescribed by: TROY AVENDANO DO Lisinopril (Lisinopril) 40 Mg Tablet 40 MG PO DAILY Prescribed by: TROY AVENDANO DO Lovastatin (Lovastatin) 40 Mg Tablet 40 MG PO HS Prescribed by: TROY AVENDANO DO Durable Medical Equipment Walker (Ultra-Light Rollator) 1 Each Each 1 EACH [facility] (DME) Prescribed by: PEDRITO SHEPPARD MD Followup Plan Disposition: Home Discharge Diet: Low fat, Low Sodium Discharge Activity: Outpatient Physical Therapy Patient Instructions You were hospitalized due to syncope. Seems to be due to alcohol intoxication. Please follow-up with AA and other out patient resources for help in chemical dependency. Please continue outpatient physical therapy. Please follow-up with PCP on December 24 as scheduled. Continue all other medications as usual. Follow-up Provider: Mann Mallory MD Follow-up with PCP in: 1 week (Dec 24) Time spent 35 minutes counseling and coordinating discharge copies to: Mann Mallory MD, Melaku MD Dec 20, 2016 16:03
== END 2016-12-20 12:26 | disposition home or self-care (01) | DRG 897 ==
LOC: SED 10:57 → MPC 15:09 → OBSVTOIN 15:09
PROVIDERS: ADMIT Internal Medicine; ATTEND Internal Medicine
DX: F10.220 Alcohol dependence with intoxication, uncomplicated (principal); E87.1 Hypo-osmolality and hyponatremia; Y90.6 Blood alcohol level of 120-199 mg/100 ml; Z85.3 Personal history of malignant neoplasm of breast; Z79.82 Long term (current) use of aspirin; Z87.891 Personal history of nicotine dependence; R29.6 Repeated falls; R74.0 Nonspecific elevation of levels of transaminase and lactic acid dehydrogenase [LDH]; I10 Essential (primary) hypertension; E78.5 Hyperlipidemia, unspecified; E03.9 Hypothyroidism, unspecified; E86.0 Dehydration